=== PATIENT | male | born 1995 | race Caucasian/White ===

== ENCOUNTER → 2017-11-26 | Outpatient (CLI) | payer OTHER ==
--- NOTE | 2017-12-03 13:58 | HM ---
HOLTER MONITOR REPORT Patient was monitored for 24 hours. Baseline rhythm is sinus mechanism with normal conduction. The average rate 76 beats per minutes, minimum 46, maximum 154 beats per minute. Ventricular ectopic activity was present in the form of rare single PVCs. Supraventricular ectopic activity was present in the form of frequent single PACs. Symptoms of chest discomfort did not correlate with any dysrhythmia. CONCLUSION: 1. Sinus mechanism baseline rhythm. 2. Rare ventricular ectopic activity. 3. Frequent single premature atrial contractions. 4. Symptoms did not correlate with any dysrhythmia. MMODL / IJN: [id number] /
== END | disposition home or self-care (01) ==
LOC: RADECHMAIN 11:51
PROVIDERS: ATTEND Internal Medicine
DX: I49.9 Cardiac arrhythmia, unspecified (principal)
CPT/HCPCS: 93225; 93226

== ENCOUNTER → 2018-12-16 | Outpatient (CLI) | payer OTHER ==
--- NOTE | 2018-12-16 20:35 | CONS ---
CONSULTATION REASON FOR CONSULTATION: Snoring and feeling tired. This is a 23-year-old male patient with a history of alcoholism and history of PTSD coming in for a sleep apnea evaluation. He was referred to me by Cardiology. He was having episodes of chest pain and he underwent a cardiac evaluation by Dr. Tate, including an echocardiogram and a stress test, and the results were negative. He has been feeling fatigued and sleepy along with history of snoring. Questionable witnessed apneas. No cataplexy or sleep paralysis. No hallucinations. He goes to bed around 1 a.m. and wakes up at 9 a.m. in the morning. He can fall asleep at any time. He reports [place] score to be at 11. No head trauma. No ongoing substance abuse at this point in time. There is a positive family history for TERESA. PAST MEDICAL HISTORY: History of alcoholism and history of PTSD. PAST SURGICAL HISTORY: Includes toe surgery. ALLERGIES: NOT KNOWN. OUTPATIENT MEDICATIONS: None. SOCIAL HISTORY: Recovering alcoholism. He started drinking at the age of 10. He has not drunk alcohol since the age of 16. No history of smoking. No history of substance abuse. FAMILY HISTORY: Positive for obstructive sleep apnea in his mother and grandfather. REVIEW OF SYSTEMS: Fourteen-point review of systems was done. Positive findings were all mentioned above in the history of present illness. No insomnia. No restlessness of the lower extremities. No nocturia. No grinding of the teeth. No sleepwalking. No dry mouth. No anxiety or panic attacks. No palpitations. No heartburn. No gasping for air. No restlessness in the lower extremities. No anxiety. No irritability. No depression. PHYSICAL EXAMINATION: BP is 122/73, pulse 82, respirations 16, temperature 98.3, saturation 97% on room air. Height 5 feet 10 inches, weight 270, BMI 31.1. Neck size 16 inches. GENERAL APPEARANCE: Calm, comfortable. Head is atraumatic, normocephalic. NECK: Supple. No JVD. No goiter or neck mass. LUNGS: Clear to auscultation. HEART: Heart sounds are regular rate and rhythm. Normal S1, S2. No S3, S4. No murmurs. ABDOMEN: Soft, nontender. No organomegaly. EXTREMITIES: No edema. No cyanosis or clubbing. NEUROLOGIC: Alert and oriented x3. No focal neurological deficits. PSYCHIATRIC: Positive for PTSD. No substance abuse. SKIN: Negative for any wounds or ulceration. IMPRESSION: 1. Soft snoring with chronic fatigue and sleepiness, [place] Score of 11. Despite his symptoms, the patient does not have the typical anatomic features. Overall suspicion for TERESA is low. 2. Post-traumatic stress disorder. 3. History of alcoholism. 4. Chronic fatigue. PLAN: Will proceed with a screening polysomnogram to evaluate suspicion for obstructive sleep apnea and treat accordingly. MMODL / IJN: [id number] /
== END ==
LOC: SLEEP 14:34
PROVIDERS: ATTEND Internal Medicine Critical Care Medicine
DX: R06.83 Snoring (principal); R53.83 Other fatigue; F43.10 Post-traumatic stress disorder, unspecified; F10.21 Alcohol dependence, in remission; R53.82 Chronic fatigue, unspecified; Z83.6 Family history of other diseases of the respiratory system
CPT/HCPCS: 99211

== ENCOUNTER 2019-02-13 10:03 | Emergency (ER) | payer OTHER ==
[2019-02-13] MEDS ORDERED: KETOROLAC 30 MG/ML 1 ML VIAL IVP STA (11:28)
--- NOTE | 2019-02-13 11:30 | ED ---
General Adult HPI - General Chief complaint: Chest Pain Stated complaint: Chest pain Time Seen by Provider: 02/13/19 11:09 Source: patient, RN notes reviewed Mode of arrival: ambulatory Limitations: no limitations - History of Present Illness Initial comments: 23-year-old male presents to the emergency department for a chief complaint of chest pain. Patient states this has been intermittent for several years but worsened in the past year. States that today he was getting out of the bathtub when he felt like someone punched him in the chest and the pain dropped him to his knees. States he still has mild pain at this time. States he has been keith luated by cardiology and had a negative echo and stress test in September. States that he had a sleep study because they thought it could be related to sleep apnea. However that was normal as well. Patient states his sleep study is no concern to me be related to lungs. States he is supposed to follow-up with primary care for this however the episode this morning scared him. Denies any shortness of breath or diaphoresis with this. Patient has no other complaints at this time including shortness of breath, abdominal pain, nausea or vomiting, headache, or visual changes. - Related Data Home Medications Medication Instructions Recorded Confirmed Pain Pill(Unknown Name & Dose) 02/09/15 02/10/15 Previous Rx's Medication Instructions Recorded HYDROcodone/APAP 7.5-325MG [Vaughn 1 - 2 each PO Q6HR PRN #60 tab 02/10/15 7.5] Allergies Allergy/AdvReac Type Severity Reaction Status Date / Time No Known Allergies Allergy Verified 02/13/19 10:13 Review of Systems ROS Statement: Those systems with pertinent positive or pertinent negative responses have been documented in the HPI. ROS Other: All systems not noted in ROS Statement are negative. Past Medical History Past Medical History: Seizure Disorder Additional Past Medical History / Comment(s): one time seizure as a child, work accident, dislocated & fx. right big toe-wearing immobilizer History of Any Multi-Drug Resistant Organisms: None Reported Past Surgical History: Ear Surgery Additional Past Surgical History / Comment(s): surgery to remove popcorn kernal from ear as child Past Anesthesia/Blood Transfusion Reactions: No Reported Reaction Past Psychological History: No Psychological Hx Reported Smoking Status: Never smoker - Past Family History Mother Family Medical History: No Reported History General Exam Limitations: no limitations General appearance: alert, in no apparent distress Head exam: Present: atraumatic, normocephalic, normal inspection Eye exam: Present: normal appearance, PERRL, EOMI. Absent: scleral icterus, conjunctival injection, periorbital swelling ENT exam: Present: normal exam, mucous membranes moist Neck exam: Present: normal inspection, full ROM. Absent: tenderness, meningism us, lymphadenopathy Respiratory exam: Present: normal lung sounds bilaterally, chest wall tenderness (Left anterior chest wall tenderness). Absent: respiratory distress, wheezes, rales, rhonchi, stridor Cardiovascular Exam: Present: regular rate, normal rhythm, normal heart sounds. Absent: systolic murmur, diastolic murmur, rubs, gallop, clicks GI/Abdominal exam: Present: soft, normal bowel sounds. Absent: distended, t enderness, guarding, rebound, rigid Neurological exam: Present: alert, oriented X3, normal gait Psychiatric exam: Present: normal affect, normal mood Course Vital Signs 02/13/19 10:13 Temperature 98.6 F Pulse Rate 84 Respiratory 18 Rate Blood Pressure 143/90 O2 Sat by Pulse 98 Oximetry EKG Findings - EKG Comments: EKG Findings:: Sinus rhythm, ventricular rate 66, MA interval 138, QTC 400, no evidence of ST elevation or depression Medical Decision Making - Medical Decision Making 43-year-old male presents to the ER for a chief complaint of chest pain. States it has been intermittent for several years but worsened in the past year. States that today he was getting out of the bathtub and felt like someone Punched him in the chest. Patient has had multiple workups and has had a negative echo, stress test, and sleep study. States he is supposed to follow-up for his primary care provider for further evaluation. Patient states hiswife wanted him to come to the ER today. EKG is unremarkable. Normal sinus rhythm with a ventricular rate of 66. CBC and CMP are unremarkable. Troponin is negative. D-dimer negative. Vitals are stable. Exam did reveal reproducible chest wall pain. At this time patient will follow-up with primary care. He will return here if his any worsening symptoms. He does request a work note which was given for him. - Lab Data Result diagrams: 02/13/19 10:45 02/13/19 10:45 Lab Results 02/13/19 02/13/19 02/13/19 Range/Units 10:45 10:45 10:45 WBC 5.1 (3.8-10.6) k/uL RBC 5.65 (4.30-5.90) m/uL Hgb 16.5 (13.0-17.5) gm/dL Hct 48.7 (39.0-53.0) % MCV 86.1 (80.0-100.0) fL MCH 29.2 (25.0-35.0) pg MCHC 33.9 (31.0-37.0) g/dL RDW 12.9 (11.5-15.5) % Plt Count 271 (150-450) k/uL Neutrophils % 57 % Lymphocytes % 33 % Monocytes % 6 % Eosinophils % 1 % Basophils % 0 % Neutrophils # 2.9 (1.3-7.7) k/uL Lymphocytes # 1.7 (1.0-4.8) k/uL Monocytes # 0.3 (0-1.0) k/uL Eosinophils # 0.1 (0-0.7) k/uL Basophils # 0.0 (0-0.2) k/uL PT 10.6 (9.0-12.0) sec INR 1.0 (<1.2) APTT 26.3 (22.0-30.0) sec D-Dimer <0.17 (<0.60) mg/L FEU Sodium 141 (137-145) mmol/L Potassium 4.6 (3.5-5.1) mmol/L Chloride 105 (98-107) mmol/L Carbon Dioxide 28 (22-30) mmol/L Anion Gap 8 mmol/L BUN 15 (9-20) mg/dL Creatinine 1.02 (0.66-1.25) mg/dL Est GFR (CKD-EPI)AfAm >90 (>60 ml/min/1.73 sqM) Est GFR (CKD-EPI)NonAf >90 (>60 ml/min/1.73 sqM) Glucose 94 (74-99) mg/dL Calcium 9.8 (8.4-10.2) mg/dL Magnesium 2.3 (1.6-2.3) mg/dL Total Bilirubin 0.7 (0.2-1.3) mg/dL AST 40 (17-59) U/L ALT 67 (21-72) U/L Alkaline Phosphatase 71 (38-126) U/L Troponin I (0.000-0.034) ng/mL Total Protein 7.2 (6.3-8.2) g/dL Albumin 4.6 (3.5-5.0) g/dL 02/13/19 Range/Units 10:45 WBC (3.8-10.6) k/uL RBC (4.30-5.90) m/uL Hgb (13.0-17.5) gm/dL Hct (39.0-53.0) % MCV (80.0-100.0) fL MCH (25.0-35.0) pg MCHC (31.0-37.0) g/dL RDW (11.5-15.5) % Plt Count (150-450) k/uL Neutrophils % % Lymphocytes % % Monocytes % % Eosinophils % % Basophils % % Neutrophils # (1.3-7.7) k/uL Lymphocytes # (1.0-4.8) k/uL Monocytes # (0-1.0) k/uL Eosinophils # (0-0.7) k/uL Basophils # (0-0.2) k/uL PT (9.0-12.0) sec INR (<1.2) APTT (22.0-30.0) sec D-Dimer (<0.60) mg/L FEU Sodium (137-145) mmol/L Potassium (3.5-5.1) mmol/L Chloride (98-107) mmol/L Carbon Dioxide (22-30) mmol/L Anion Gap mmol/L BUN (9-20) mg/dL Creatinine (0.66-1.25) mg/dL Est GFR (CKD-EPI)AfAm (>60 ml/min/1.73 sqM) Est GFR (CKD-EPI)NonAf (>60 ml/min/1.73 sqM) Glucose (74-99) mg/dL Calcium (8.4-10.2) mg/dL Magnesium (1.6-2.3) mg/dL Total Bilirubin (0.2-1.3) mg/dL AST (17-59) U/L ALT (21-72) U/L Alkaline Phosphatase (38-126) U/L Troponin I <0.012 (0.000-0.034) ng/mL Total Protein (6.3-8.2) g/dL Albumin (3.5-5.0) g/dL Disposition Clinical Impression: Atypical chest pain Disposition: HOME SELF-CARE Condition: Good Instructions (If sedation given, give patient instructions): Costochondritis (ED), Chest Pain (ED) Additional Instructions: Please follow up with primary care in 1-2 days. Please return to the emergency department if you have any worsening symptoms. Is patient prescribed a controlled substance at d/c from ED?: No Referrals: Thony Paula MD [Primary Care Provider] - 1-2 days Time of Disposition: 13:40
[2019-02-13 11:49] LABS: ALT 67 U/L (21-72); AST 40 U/L (17-59); African American GFR (CKD) >90 (>60 ml/min/1.73 sqM); Albumin 4.6 g/dL (3.5-5.0); Alkaline Phosphatase 71 U/L (38-126); Anion Gap 8 mmol/L; Blood Urea Nitrogen 15 mg/dL (9-20); Calcium 9.8 mg/dL (8.4-10.2); Carbon Dioxide 28 mmol/L (22-30); Chloride 105 mmol/L (98-107); Glucose 94 mg/dL (74-99); Magnesium 2.3 mg/dL (1.6-2.3); Potassium 4.6 mmol/L (3.5-5.1); Sodium 141 mmol/L (137-145); Total Bilirubin 0.7 mg/dL (0.2-1.3); Total Protein 7.2 g/dL (6.3-8.2)
[2019-02-13 11:58] LABS: D-Dimer <0.17 mg/L FEU (<0.60); Partial Thromboplastin Time 26.3 sec (22.0-30.0); Prothrombin Time 10.6 sec (9.0-12.0)
[2019-02-13 12:30] LABS: Basophils % (A) 0 %; Eosinophils # (A) 0.1 k/uL (0-0.7); Eosinophils % (A) 1 %; HCT 48.7 % (39.0-53.0); HGB 16.5 gm/dL (13.0-17.5); Lymphocytes # (A) 1.7 k/uL (1.0-4.8); Lymphocytes % (A) 33 %; MCH 29.2 pg (25.0-35.0); MCHC 33.9 g/dL (31.0-37.0); MCV 86.1 fL (80.0-100.0); Mean Platelet Volume 6.9; Monocytes # (A) 0.3 k/uL (0-1.0); Monocytes % (A) 6 %; Neutrophils # (A) 2.9 k/uL (1.3-7.7); Neutrophils % (A) 57 %; Platelet Count 271 k/uL (150-450); RBC 5.65 m/uL (4.30-5.90); RDW 12.9 % (11.5-15.5); WBC 5.1 k/uL (3.8-10.6)
--- NOTE | 2019-02-13 12:47 | XR ---
EXAMINATION TYPE: XR chest 2V DATE OF EXAM: 02/13/2019 COMPARISON: NONE HISTORY: Chest pain TECHNIQUE: Frontal and lateral views of the chest are obtained. FINDINGS: There is no focal air space opacity. No evidence for pneumothorax. No pleural effusion. The cardiac silhouette size is within normal limits. The osseous structures are grossly intact. IMPRESSION: 1. No acute cardiopulmonary process.
[2019-02-13 14:17] VITALS: RESP 16
[2019-02-13 14:21] VITALS: BP 140/80; PULSE 75; TEMP 98.2
== END 2019-02-13 14:20 | disposition home or self-care (01) ==
LOC: EC 10:03
DX: R07.89 Other chest pain (principal); Z79.891 Long term (current) use of opiate analgesic
CPT/HCPCS: 36415; 71046; 80053; 83735; 84484; 85025; 85379; 85610; 85730; 93005; 96374; 99285

== ENCOUNTER → 2019-03-13 | Outpatient (CLI) | payer OTHER ==
--- NOTE | 2019-03-13 13:12 | CT ---
EXAMINATION TYPE: CT chest wo con DATE OF EXAM: 03/13/2019 COMPARISON: None HISTORY: Patient complains of bilateral chest pain. CT DLP: 360.[address] of the chest was performed with lung and mediastinal window settings submitted. The la ck of contrast limits evaluation of the vascular, mediastinal and parenchymal structures including th e upper abdomen. LUNGS: The lungs are clear and free of infiltrate. No atelectasis. No pulmonary nodule or mass is de tected. No pleural effusion. No CT evidence of interstitial lung disease. MEDIASTINUM/JAVED: Thoracic aorta is of normal caliber with limited evaluation given lack of contrast . The heart is not enlarged. No evidence for mediastinal mass. No lymph nodes greater than 1cm. UPPER ABDOMEN: No significant abnormality is seen. OTHER: No significant other abnormality. IMPRESSION: 1. No distinct abnormality seen.
== END | disposition home or self-care (01) ==
LOC: RADCTMAIN 12:29
PROVIDERS: ATTEND Internal Medicine Pulmonary Disease
DX: R07.9 Chest pain, unspecified (principal)
CPT/HCPCS: 71250

== ENCOUNTER 2020-09-23 12:44 | Emergency (ER) | payer OTHER ==
[2020-09-23] MEDS ORDERED: ONDANSETRON 4 MG/2 ML VIAL IVP STA (13:06)
[2020-09-23] MEDS ORDERED: SODIUM CHLORIDE 0.9% 1,000 ML IV STA (13:06)
--- NOTE | 2020-09-23 13:08 | ED ---
Abdominal Pain HPI - General Chief Complaint: Abdominal Pain Stated Complaint: N/V/D, weakness Time Seen by Provider: 09/23/20 12:58 Source: patient, RN notes reviewed Mode of arrival: ambulatory Limitations: no limitations - History of Present Illness Initial Comments: Patient is a 25 she'll male that presents to emergency department complaining of left upper quadrant pain. He noted that for about the last week to week and a half he's been having diarrhea, and vomiting. He noted that there was no blood in it. He noted that he has desire to eat but can't keep food down and vomits. He noted that he thinks it's most likely from stress due to him most likely getting a divorce with his . She noted that he just wanted to hold food down and not or back up. He denied any pain while laying in bed during exam and interview. He denied any chest pain shortness of breath headache constipation fever fatigue chills weakness numbness tingling. - Related Data Previous Rx's Medication Instructions Recorded Ondansetron Odt [Zofran Odt] 4 mg PO Q8HR PRN 7 Days #21 tab 09/23/20 Allergies Allergy/AdvReac Type Severity Reaction Status Date / Time mushroom Allergy Anaphylaxis Verified 09/23/20 13:54 ahmadi AdvReac Nausea & Verified 09/23/20 13:54 Vomiting CAT SALIVA Allergy Rash/Hives/[place] Uncoded 09/23/20 13:54 Eye Review of Systems ROS Statement: Those systems with pertinent positive or pertinent negative responses have been documented in the HPI. ROS Other: All systems not noted in ROS Statement are negative. Past Medical History Past Medical History: Seizure Disorder Additional Past Medical History / Comment(s): one time seizure as a child, work accident, dislocated & fx. right big toe-wearing immobilizer History of Any Multi-Drug Resistant Organisms: None Reported Past Surgical History: Ear Surgery Additional Past Surgical History / Comment(s): surgery to remove popcorn kernal from ear as child Past Anesthesia/Blood Transfusion Reactions: No Reported Reaction Past Psychological History: No Psychological Hx Reported Smoking Status: Never smoker Past Alcohol Use History: None Reported Past Drug Use History: None Reported - Past Family History Mother Family Medical History: No Reported History General Exam Limitations: no limitations General appearance: alert, in no apparent distress Head exam: Present: atraumatic, normocephalic, normal inspection Eye exam: Present: normal appearance, PERRL, EOMI. Absent: scleral icterus, conjunctival injection, periorbital swelling ENT exam: Present: normal exam, mucous membranes moist Neck exam: Present: normal inspection. Absent: tenderness, meningismus, lymphadenopathy Respiratory exam: Present: normal lung sounds bilaterally. Absent: respiratory distress, wheezes, rales, rhonchi, stridor Cardiovascular Exam: Present: regular rate, normal rhythm, normal heart sounds. Absent: systolic murmur, diastolic murmur, rubs, gallop, clicks GI/Abdominal exam: Present: soft, tenderness (Left upper quadrant), normal bowel sounds, hypoactive bowel sounds. Absent: distended, guarding, rebound, rigid Extremities exam: Present: normal inspection, full ROM, normal capillary refill. Absent: tenderness, pedal edema, joint swelling, calf tenderness Neurological exam: Present: alert, oriented X3, CN II-XII intact Psychiatric exam: Present: normal affect, depressed Skin exam: Present: warm, dry, intact, normal color. Absent: rash Course Vital Signs 09/23/20 12:53 Temperature 98.3 F Pulse Rate 79 Respiratory 20 Rate Blood Pressure 133/88 O2 Sat by Pulse 96 Oximetry Medical Decision Making - Medical Decision Making 25 she'll male complaining of left upper quadrant abdominal pain. Labs, 1 L normal saline, 4 mg of Zofran, CT of the abdomen and pelvis ordered. Labs unremarkable. Case discussed with Dr. Barrett, decided was located discharge patient home. With follow-up primary care and possible GI referral. - Lab Data Result diagrams: 09/23/20 13:29 09/23/20 13:29 Lab Results 09/23/20 09/23/20 Range/Units 13:29 13:29 WBC 6.1 (3.8-10.6) k/uL RBC 5.70 (4.30-5.90) m/uL Hgb 17.5 (13.0-17.5) gm/dL Hct 50.6 (39.0-53.0) % MCV 88.7 (80.0-100.0) fL MCH 30.7 (25.0-35.0) pg MCHC 34.6 (31.0-37.0) g/dL RDW 12.7 (11.5-15.5) % Plt Count 264 (150-450) k/uL MPV 7.5 Neutrophils % 65 % Lymphocytes % 24 % Monocytes % 8 % Eosinophils % 1 % Basophils % 0 % Neutrophils # 4.0 (1.3-7.7) k/uL Lymphocytes # 1.5 (1.0-4.8) k/uL Monocytes # 0.5 (0-1.0) k/uL Eosinophils # 0.1 (0-0.7) k/uL Basophils # 0.0 (0-0.2) k/uL Sodium 138 (137-145) mmol/L Potassium 4.3 (3.5-5.1) mmol/L Chloride 102 (98-107) mmol/L Carbon Dioxide 24 (22-30) mmol/L Anion Gap 12 mmol/L BUN 12 (9-20) mg/dL Creatinine 0.92 (0.66-1.25) mg/dL Est GFR (CKD-EPI)AfAm >90 (>60 ml/min/1.73 sqM) Est GFR (CKD-EPI)NonAf >90 (>60 ml/min/1.73 sqM) Glucose 92 (74-99) mg/dL Calcium 9.8 (8.4-10.2) mg/dL Total Bilirubin 1.0 (0.2-1.3) mg/dL AST 59 (17-59) U/L ALT 150 H (4-49) U/L Alkaline Phosphatase 69 (38-126) U/L Total Protein 7.6 (6.3-8.2) g/dL Albumin 4.8 (3.5-5.0) g/dL Amylase 53 (30-110) U/L Lipase 45 (23-300) U/L - Radiology Data Radiology results: report reviewed, image reviewed CT of the abdomen and pelvis. Suboptimal study a mild to moderate underlying uncomplicated acute enterocolitis suspected in this patient inflammatory bowel disease such as Crohn's disease or ulcerative colitis and is before the rescue. Disposition Clinical Impression: Abdominal pain, Nausea & vomiting Disposition: HOME SELF-CARE Condition: Stable Instructions (If sedation given, give patient instructions): Abdominal Pain (ED) Additional Instructions: Please return to the Emergency Department if symptoms worsen or any other concerns. Take medication as prescribed. Follow-up primary care 1-2 days. Follow-up with GI doctor to further investigate Crohn's or ulcerative colitis. Pain medications as needed for conservative management. Prescriptions: Ondansetron Odt [Zofran Odt] 4 mg PO Q8HR PRN 7 Days #21 tab PRN Reason: Nausea Is patient prescribed a controlled substance at d/c from ED?: No Referrals: Thony Paula MD [Primary Care Provider] - 1-2 days Time of Disposition: 14:47
[2020-09-23 13:48] LABS: Basophils % (A) 0 %; Eosinophils # (A) 0.1 k/uL (0-0.7); Eosinophils % (A) 1 %; HCT 50.6 % (39.0-53.0); HGB 17.5 gm/dL (13.0-17.5); Lymphocytes # (A) 1.5 k/uL (1.0-4.8); Lymphocytes % (A) 24 %; MCH 30.7 pg (25.0-35.0); MCHC 34.6 g/dL (31.0-37.0); MCV 88.7 fL (80.0-100.0); Mean Platelet Volume 7.5; Monocytes # (A) 0.5 k/uL (0-1.0); Monocytes % (A) 8 %; Neutrophils % (A) 65 %; Platelet Count 264 k/uL (150-450); RDW 12.7 % (11.5-15.5); WBC 6.1 k/uL (3.8-10.6)
[2020-09-23 14:00] LABS: ALT 150 U/L (4-49); AST 59 U/L (17-59); African American GFR (CKD) >90 (>60 ml/min/1.73 sqM); Albumin 4.8 g/dL (3.5-5.0); Alkaline Phosphatase 69 U/L (38-126); Amylase 53 U/L (30-110); Anion Gap 12 mmol/L; Blood Urea Nitrogen 12 mg/dL (9-20); Calcium 9.8 mg/dL (8.4-10.2); Carbon Dioxide 24 mmol/L (22-30); Chloride 102 mmol/L (98-107); Glucose 92 mg/dL (74-99); Lipase 45 U/L (23-300); Non-African American GFR(CKD) >90 (>60 ml/min/1.73 sqM); Potassium 4.3 mmol/L (3.5-5.1); Sodium 138 mmol/L (137-145); Total Protein 7.6 g/dL (6.3-8.2)
--- NOTE | 2020-09-23 14:39 | CT ---
EXAMINATION TYPE: CT abdomen pelvis w con DATE OF EXAM: 09/23/2020 COMPARISON: None. HISTORY: Left sided pain with N/V/D. CT DLP: 1259.5 mGycm, Automated Exposure Control for Dose Reduction was Utilized. CONTRAST: CT scan of the abdomen and pelvis is performed without oral but with IV Contrast, patient injected wi th 100 mL of Isovue 300. FINDINGS: LUNG BASES: No significant abnormality is appreciated. LIVER/GB: Liver diffusely hypodense consistent with diffuse fatty infiltration. PANCREAS: No significant abnormality is seen. SPLEEN: No significant abnormality is seen. ADRENALS: No significant abnormality is seen. KIDNEYS: Symmetric cortical medullary uptake and excretion without hydronephrosis seen bilaterally. BOWEL: Suboptimal evaluation of bowel without enteric contrast. No suspicious small or large bowel di latation. Normal appearing appendix extending from cecum. Mild wall thickening in the terminal ileum. [id number] wall thickening involving entire right colon along with transverse colon through th e left colon into sigmoid colon and rectum. Abnormal wall thickening is contiguous. No significant fo chyna surrounding fat stranding. Some additional areas of mild wall thickening and small bowel loops in the right abdomen noted. PROSTATE/SEMINAL VESICLES: No gross abnormality seen. LYMPH NODES: No greater than 1cm abdominal or pelvic lymph nodes are appreciated. OSSEOUS STRUCTURES: No significant abnormality is seen. OTHER: No significant additional abnormality is seen. IMPRESSION: Suboptimal study, a mild to moderate underlying uncomplicated acute enterocolitis suspect ed. Differential includes infectious and/or inflammatory etiologies. In this patient, inflammatory peter wel disease such as Crohn's disease and/or ulcerative colitis need to be further investigated.
[2020-09-23 14:59] LABS: Appearance,Urine Clear (Clear); Bilirubin,Urine Negative (Negative); Blood,Urine Negative (Negative); Color,Urine Yellow; Glucose,Urine (UA) Negative (Negative); Ketones,Urine 2+ (Negative); Leukocyte Esterase,Urine Negative (Negative); Nitrite,Urine Negative (Negative); PH, Urine 6.5 (5.0-8.0); Protein,Urine Negative (Negative); Urobilinogen,Urine <2.0 mg/dL (<2.0)
[2020-09-23 15:07] LABS: Specific Gravity,Urine >1.050 (1.001-1.035)
[2020-09-23 15:09] VITALS: BP 147/91; PULSE 67; RESP 16; TEMP 97.9
== END 2020-09-23 15:11 | disposition home or self-care (01) ==
LOC: EC 12:44
DX: R10.12 Left upper quadrant pain (principal); R11.2 Nausea with vomiting, unspecified
CPT/HCPCS: 36415; 80053; 82150; 83690; 85025; 81003; 74177; 99284; 96374; 96361; J2405; Q9967

== ENCOUNTER 2021-12-01 16:33 | Emergency (ER) | payer OTHER ==
[2021-12-01 17:00] VITALS: TEMP 98.2
--- NOTE | 2021-12-01 19:06 | ED ---
ENT HPI - General Chief complaint: ENT Stated complaint: L Ear Pain/loss of hearing Time Seen by Provider: 12/01/21 18:56 Source: patient, RN notes reviewed Mode of arrival: ambulatory Limitations: no limitations - History of Present Illness Initial comments: This is a pleasant 26-year-old male who presents to the emergency department complaining of left ear pain and left dental pain which has been going on for over one week. Patient states she's had some mild hearing loss involving the left ear. Patient also describing aching pain to his left lower molar area. Denies fever or chills. Denies any discharge. Patient has no history of immunosuppression. No headache, no fever or chills, no changes in vision, no sore throat or difficulty with speech, no neck pain, no chest pain or shortness of breath, no abdominal pain, no nausea or vomiting, no changes in urination or bowel movements, no numbness or tingling, no extremity pain, no skin rashes or lesions. - Related Data Previous Rx's Medication Instructions Recorded Ondansetron Odt [Zofran Odt] 4 mg PO Q8HR PRN 7 Days #21 tab 09/23/20 Acetaminophen [Tylenol] 500 mg PO Q4-6H PRN #24 tab 12/01/21 Amoxicillin 500 mg PO Q8H #30 capsule 12/01/21 Ciprofloxacin-Hc Otic Susp [Cipro 3 drops LEFT EAR BID #10 ml 12/01/21 Hc Otic Suspension] Naproxen [Naprosyn] 375 mg PO Q12HR PRN #20 tablet 12/01/21 Allergies Allergy/AdvReac Type Severity Reaction Status Date / Time mushroom Allergy Anaphylaxis Verified 09/23/20 13:54 ahmadi AdvReac Nausea & Verified 09/23/20 13:54 Vomiting CAT SALIVA Allergy Rash/Hives/[place] Uncoded 09/23/20 13:54 Eye Review of Systems ROS Statement: Those systems with pertinent positive or pertinent negative responses have been documented in the HPI. ROS Other: All systems not noted in ROS Statement are negative. Past Medical History Past Medical History: Seizure Disorder Additional Past Medical History / Comment(s): one time seizure as a child, work accident, dislocated & fx. right big toe-wearing immobilizer History of Any Multi-Drug Resistant Organisms: None Reported Past Surgical History: Ear Surgery Additional Past Surgical History / Comment(s): surgery to remove popcorn kernal from ear as child Past Anesthesia/Blood Transfusion Reactions: No Reported Reaction Past Psychological History: No Psychological Hx Reported Smoking Status: Never smoker Past Alcohol Use History: None Reported Past Drug Use History: None Reported - Past Family History Mother Family Medical History: No Reported History General Exam - General Exam Comments Initial Comments: Patient does not appear to be ill or toxic. Vital signs stable, patient afebrile. Adequate peripheral perfusion. Limitations: no limitations General appearance: alert, in no apparent distress Head exam: Present: atraumatic, normocephalic, normal inspection Eye exam: Present: normal appearance, PERRL, EOMI. Absent: scleral icterus, conjunctival injection, nystagmus, periorbital swelling ENT exam: Present: normal exam, mucous membranes moist. Absent: normal external ear exam Expanded Ear exam: Present: normal external inspection (No mastoid tenderness. Left TM visualized portion is pearly umana with good light reflex. Right Not visualized due to cerumen.), other (Patient has tenderness through the left external ear with movement. Also tenderness over the tragus. Mild edema to the ear canal. No mastoid tenderness bilaterally. TMs does not appear to be involved. Patient does have some flaky discharge with minimal serous discharge noted to the left EAC. ). Absent: auricular hematoma, auricular trauma TM/Canal exam: Cerumen Impaction: Right TM Mouth exam: Present: normal external inspection. Absent: drooling, trismus, muffled voice, tongue normal, tongue elevation, laceration Teeth exam: Present: dental tenderness # (Tenderness adjacent tooth #15. No definitive abscess. Minimal erythema to the gingiva). Absent: dental caries, fractured tooth # Throat exam: normal inspection. negative: tonsillar erythema, tonsillomegaly, tonsillar exudate, R peritonsillar mass, L peritonsillar mass Neck exam: Present: normal inspection, full ROM. Absent: tenderness, meningismus, lymphadenopathy, thyromegaly Respiratory exam: Present: normal lung sounds bilaterally. Absent: respiratory distress, wheezes, rales, rhonchi, stridor Cardiovascular Exam: Present: regular rate, normal rhythm, normal heart sounds. Absent: systolic murmur, diastolic murmur, rubs, gallop, clicks GI/Abdominal exam: Present: soft, normal bowel sounds. Absent: distended, tenderness, guarding, rebound, rigid Extremities exam: Present: normal inspection, full ROM, normal capillary refill. Absent: tenderness, pedal edema, joint swelling, calf tenderness Back exam: Present: normal inspection Neurological exam: Present: alert, oriented X3, CN II-XII intact Psychiatric exam: Present: normal affect, normal mood Skin exam: Present: warm, dry, intact, normal color. Absent: rash Course Vital Signs 12/01/21 16:58 Temperature 98.2 F Pulse Rate 78 Respiratory 18 Rate Blood Pressure 147/103 O2 Sat by Pulse 98 Oximetry Medical Decision Making - Medical Decision Making Symptoms consistent with external otitis. Patient also has some erythema adjacent to tooth #15 on the left. I'm going to cover with amoxicillin for early dental infection. We'll treat the external otitis with ciproflo xacin/hydrocortisone. Patient was told to return to the ER for any signs or symptoms worsen. Told to return immediately if any other problems arise. All questions answered. Treatment plan discussed. Patient in agreement Every effort has been made to ensure accuracy of this dictation. However, due to the limitations of electronic medical records and dictation devices, errors in charting still occur. ENT follow-up information given. Supervising physician is Dr. Perez Disposition Clinical Impression: Pain, dental, Otitis externa of left ear Disposition: HOME SELF-CARE Instructions (If sedation given, give patient instructions): Swimmer's Ear (ED), Toothache (ED) Additional Instructions: The antibiotics as well as antibiotic drops as directed. Follow up with ear nose and throat doctor as directed. Alternatively, he can follow-up with your regular physician as well. Follow-up with your regular physician as directed. Return to the ER immediately if any symptoms worsen, new symptoms arise, or any other problems develop. Prescriptions: Amoxicillin 500 mg PO Q8H #30 capsule Ciprofloxacin-Hc Otic Susp [Cipro Hc Otic Suspension] 3 drops LEFT EAR BID #10 ml Naproxen [Naprosyn] 375 mg PO Q12HR PRN #20 tablet PRN Reason: Pain Acetaminophen [Tylenol] 500 mg PO Q4-6H PRN #24 tab PRN Reason: Pain Is patient prescribed a controlled substance at d/c from ED?: No Referrals: Thony Paula MD [Primary Care Provider] - 12/08/21 Iftikhar Rao MD [STAFF PHYSICIAN] - 12/08/21 Time of Disposition: 19:05
[2021-12-01 19:16] VITALS: BP 141/97; PULSE 80; RESP 17
== END 2021-12-01 19:24 | disposition home or self-care (01) ==
LOC: EC 16:33
DX: K08.89 Other specified disorders of teeth and supporting structures (principal); H60.8X2 Other otitis externa, left ear; G40.909 Epilepsy, unspecified, not intractable, without status epilepticus; Z91.018 Allergy to other foods; Z91.09 Other allergy status, other than to drugs and biological substances
CPT/HCPCS: 99283

== ENCOUNTER → 2022-08-20 | Outpatient (CLI) | payer OTHER ==
--- NOTE | 2022-08-20 10:24 | XR ---
EXAMINATION TYPE: XR lumbar spine 2 or 3V DATE OF EXAM: 08/20/2022 CLINICAL HISTORY: S39.012D muscle strain TECHNIQUE: Three views of the lumbar spine are submitted. COMPARISON: CT abdomen pelvis 09/23/2020 FINDINGS: There are 5 lumbar type vertebral bodies identified. The lumbar spine shows satisfactory alignment w ithout evidence of acute fracture or dislocation. Minimal levocurvature of the lumbar spine. Vertebra l body heights are within normal limits. Disc spaces are within normal limits. Schmorl's node invo lving the inferior endplate of L1. The overlying soft tissue appears unremarkable. IMPRESSION: No acute fracture or dislocation is seen in the lumbar spine.
== END | disposition home or self-care (01) ==
LOC: RADXRMAIN 09:53
PROVIDERS: ATTEND Emergency Medicine
DX: S39.012D Strain of muscle, fascia and tendon of lower back, subsequent encounter (principal)
CPT/HCPCS: 72100